=== PATIENT | female | born 1995 | race Caucasian/White ===

== ENCOUNTER 2018-09-28 21:55 | Emergency (ER) | payer BC ==
[~2018-09-28] VITALS: Ht 170.2 cm; Wt 77.1 kg
[~2018-09-28 21:55] MED LIST: BIRTH CONTROL INTRADERM; MACROBID 100 M100 M1 PO; MULTIVITAMINS1 EAC7 PO; POTASSIUM20 PO; PRENATAL VITAM1 EAC5 PO; REGLAN 10 MG TA10 M1 PO; ZOFRAN4 MG PO
[2018-09-28] MEDS ORDERED: PROZAC20 MG PO (22:03)
[2018-09-28] MEDS ORDERED: BUSPIRONE HCL10 MG PO (22:03)
[2018-09-28] MEDS ORDERED: ACETAMINOPHEN-1 EAC1 PO (23:11)
[2018-09-28 23:22] VITALS: BP 122/62
== END 2018-09-28 23:22 | disposition home or self-care (01) ==
LOC: M.ERS 21:55
DX: M79.89 Other specified soft tissue disorders (principal); R22.41 Localized swelling, mass and lump, right lower limb; Z88.8 Allergy status to other drugs, medicaments and biological substances; Z87.442 Personal history of urinary calculi; Z98.890 Other specified postprocedural states